=== PATIENT | female | born 1955 | race Two or more races ===

== ENCOUNTER 2018-04-29 10:51 | Outpatient (CLI) | payer OTHER ==
[~2018-04-29 10:51] MED LIST: CARDIZEM30 MG PO; DICLOFENAC POTA50 MG PO; LOSARTAN-HCTZ1 EAC1 PO; METFORMIN HCL500 MG PO
== END 2018-04-29 16:31 | disposition home or self-care (01) ==
LOC: RAD 10:51 → MRI 12:15 → RAD 16:31
DX: M25.561 Pain in right knee (principal); M25.562 Pain in left knee
CPT/HCPCS: 73721

== ENCOUNTER → 2018-10-10 | Outpatient (CLI) | payer OTHER | END | disposition home or self-care (01) | LOC: MRI 10:45 | DX: M25.561 Pain in right knee (principal); M25.562 Pain in left knee | CPT/HCPCS: 73721 ==

== ENCOUNTER 2018-11-14 12:21 | Outpatient (CLI) | payer OTHER | END 2018-11-14 14:53 | disposition home or self-care (01) | LOC: RAD 12:21 | DX: R07.89 Other chest pain (principal) ==

== ENCOUNTER 2018-11-14 12:49 | Outpatient (CLI) | payer OTHER | END 2018-11-14 12:55 | disposition home or self-care (01) | LOC: LAB 12:49 | DX: I10 Essential (primary) hypertension (principal) ==

== ENCOUNTER 2019-03-08 08:51 | Outpatient (CLI) | payer OTHER | END 2019-03-08 08:54 | disposition home or self-care (01) | LOC: NUCLEAR 08:51 | DX: M25.461 Effusion, right knee (principal); M25.462 Effusion, left knee; M79.661 Pain in right lower leg; M79.662 Pain in left lower leg ==